=== PATIENT | female | born 1975 | race Caucasian/White ===

== ENCOUNTER 2016-09-20 17:57 | Emergency (ER) | payer MEDICARE, MEDICAID, OTHER ==
[~2016-09-20] VITALS: Ht 157.5 cm; Wt 65.0 kg
[~2016-09-20 17:57] MED LIST: METO50TA PO
[2016-09-20 17:58] VITALS: BP 168/113; PULSE 96; RESP 22; TEMP 98.3
[2016-09-20] MEDS ORDERED: SODIUM CHLORIDE 0.9% FLUSH 5 ML FLUSH IVF PRN (18:15)
[2016-09-20] MEDS ORDERED: ONDANSETRON HCL 4 MG/2 ML VIAL IVP ONE (18:15)
[2016-09-20] MEDS ORDERED: KETOROLAC TROMETHAMINE 30 MG/ML (IVP) VIAL IV PUSH ONE (18:15)
--- NOTE | 2016-09-20 18:20 | PD ---
HPI Chief Complaint: Flank/Kidney Pain Time Seen by Provider: 18:15 Travel History International Travel<30 days: No Contact w/Intl Traveler<30days: No Traveled to known affect area: No History of Present Illness HPI Patient comes in complaining of left flank pain that began approximately 2 hours ago. Patient states it began while she was sitting and getting her nails done. Pain is sharp stabbing like in nature and radiates to her left lower quadrant of her abdomen. Patient denies anything like this in the past. Patient is doing anything for it. Patient denies anything making it better or worse. Patient reports associated nausea. Denies any chest pain, shortness of breath, fevers, change in bowel or bladder, or fevers. Patient states she smokes marijuana for her pain as she does not like taking narcotics. PFSH Past Medical History Diminished Hearing: No Hypertension: Yes Musculoskeletal: Yes Immunizations Current: Yes Tetanus Vaccination: Unknown Influenza Vaccination: No ?: Unknown LMP: not available Menopausal: Yes : 9 Para: 6 Miscarriage: 3 Tubal Ligation: Yes Past Surgical History Cholecystectomy: Yes Tonsillectomy: Yes Social History Alcohol Use: No Tobacco Use: No Substance Use: No Allergies-Medications (Allergen,Severity, Reaction): Coded Allergies: Demerol (Verified Allergy, Intermediate, Hives, 09/15/15) Reported Meds & Prescriptions Reported Meds & Active Scripts Active Flomax (Tamsulosin HCl) 0.4 Mg Cap 0.4 Mg PO HS Zofran Odt (Ondansetron Odt) 4 Mg Tab 4 Mg SL Q6HR PRN Ibuprofen 800 Mg Tab 800 Mg PO Q8H PRN Reported Metoprolol Tartrate 50 mg (Metoprolol Tartrate) 50 Mg Tab 100 Mg PO DAILY Review of Systems Except as stated in HPI: all other systems reviewed are Neg Physical Exam Narrative GENERAL: Well-developed, well nourished, in moderate distress, and non-ill appearing. SKIN: Warm and dry. HEAD: Atraumatic. Normocephalic. EYES: Pupils equal and round. EOMI. No scleral icterus. No injection or drainage. ENT: No nasal bleeding or discharge. Mucous membranes pink and moist. NECK: Trachea midline. Supple. No nuclear rigidity. CARDIOVASCULAR: Regular rate and rhythm. No murmur appreciated. RESPIRATORY: No accessory muscle use. No respiratory distress. Clear to auscultation. Breath sounds equal bilaterally. GASTROINTESTINAL: Abdomen soft, non-tender, nondistended. Hepatic and splenic margins not palpable. Normal bowel sounds 4. No pulsatile mass. Left CVA tenderness and left lower quadrant tenderness. MUSCULOSKELETAL: No obvious deformities. No clubbing. No cyanosis. No edema. Full range of motion. NEUROLOGICAL: Awake and alert. No obvious cranial nerve deficits. Motor grossly within normal limits. Normal speech. PSYCHIATRIC: Appropriate mood and affect; insight and judgment normal. Data Data Last Documented VS Vital Signs Date Time Temp Pulse Resp B/P Pulse Ox O2 Delivery O2 Flow Rate FiO2 09/20/16 19:39 59 18 167/106 96 Room Air 09/20/16 17:58 98.3 Orders Complete Blood Count With Diff (09/20/16 18:12) Comprehensive Metabolic Panel (09/20/16 18:12) Lipase (09/20/16 18:12) Urinalysis - C+S If Indicated (09/20/16 18:12) Ct Abd/Pel W/O Iv Contrast (09/20/16 18:12) Iv Access Insert/Monitor (09/20/16 18:12) Ecg Monitoring (09/20/16 18:12) Oximetry (09/20/16 18:12) Ondansetron Inj (Zofran Inj) (09/20/16 18:15) Sodium Chloride 0.9% Flush (Ns Flush) (09/20/16 18:15) Ketorolac Inj (Toradol Inj) (09/20/16 18:15) Labs Laboratory Tests Test 09/20/16 09/20/16 18:10 19:38 White Blood Count 11.0 TH/MM3 Red Blood Count 4.28 MIL/MM3 Hemoglobin 14.9 GM/DL Hematocrit 43.2 % Mean Corpuscular Volume 100.9 FL Mean Corpuscular Hemoglobin 34.9 PG Mean Corpuscular Hemoglobin 34.6 % Concent Red Cell Distribution Width 12.3 % Platelet Count 204 TH/MM3 Mean Platelet Volume 9.4 FL Neutrophils (%) (Auto) 77.4 % Lymphocytes (%) (Auto) 15.8 % Monocytes (%) (Auto) 5.8 % Eosinophils (%) (Auto) 0.7 % Basophils (%) (Auto) 0.3 % Neutrophils # (Auto) 8.5 TH/MM3 Lymphocytes # (Auto) 1.7 TH/MM3 Monocytes # (Auto) 0.6 TH/MM3 Eosinophils # (Auto) 0.1 TH/MM3 Basophils # (Auto) 0.0 TH/MM3 CBC Comment DIFF FINAL Differential Comment Urine Color YELLOW Urine Turbidity CLEAR Urine pH 6.0 Urine Specific [place] 1.021 Urine Protein TRACE mg/dL Urine Glucose (UA) NEG mg/dL Urine Ketones 10 mg/dL Urine Occult Blood MOD Urine Nitrite NEG Urine Bilirubin NEG Urine Urobilinogen LESS THAN 2.0 MG/DL Urine Leukocyte Esterase TRACE Urine RBC /hpf Urine WBC 8 /hpf Urine Squamous Epithelial 2 /hpf Cells Urine Mucus FEW /lpf Microscopic Urinalysis Comment CULT NOT INDICATED Sodium Level 141 MEQ/L Potassium Level 3.6 MEQ/L Chloride Level 108 MEQ/L Carbon Dioxide Level 23.8 MEQ/L Anion Gap 9 MEQ/L Blood Urea Nitrogen 13 MG/DL Creatinine 0.72 MG/DL Estimat Glomerular Filtration 89 ML/MIN Rate Random Glucose 96 MG/DL Calcium Level 8.9 MG/DL Total Bilirubin 0.4 MG/DL Aspartate Amino Transf 13 U/L (AST/SGOT) Alanine Aminotransferase 20 U/L (ALT/SGPT) Alkaline Phosphatase 72 U/L Total Protein 6.8 GM/DL Albumin 3.8 GM/DL Lipase 127 U/L MDM Medical Decision Making Medical Screen Exam Complete: Yes Emergency Medical Condition: Yes Differential Diagnosis Renal calculi, diverticulitis, pancreatitis, pyelonephritis, other Narrative Course The patient presented with history, exam and evaluation consistent with kidney stone. CT scan showed evidence of stone with mild obstruction. Lab evaluation revealed no serious abnormality. There was no evidence to suggest obstructive infection. The patients pain was well controlled and the patient is tolerating fluids. There was no clinical evidence to support appendicitis, bowel obstruction, cholecystitis/cholelithiasis, pancreatitis, perforation of gastric ulcer, colitis, diverticulitis, bacterial peritonitis, obstruction, volvulus, hernial incarceration or strangulation at this time. There was no evidence to support vascular pathology such as AAA, mesenteric ischemia. There was also no clinical evidence by history, exam or risk factors to suggest atypical presentation of cardiac disease such as ACS, AMI or atypical angina. Diagnosis, plan of care, management and acute outpatient follow up with Urology was discussed with the patient. Warnings to return immediately, such as worsening pain not controlled by pain medications, vomiting, fever or chills or worsening of condition were discussed. The patient agreed with plan. There is no clinical evidence to suggest atypical appendicitis, or vascular pathology (AAA, etc.). There is no clinical evidence to suggest atypical cervicitis, PID or TOA. Patient in no obvious distress upon re-evaluation. Patient states she does not wish to have narcotic pain medication to go home as the NSAIDs we have given her here got of her pain under control. All pertinent laboratory/Radiology result(s) discussed with patient. Patient was asked if they wanted to speak to my attending, which the patient did not wish to do at this time. I discussed patient with Dr. Webster, prior to discharge, who is in agreement with plan of care and disposition. Any questions/concerns in reference to patient diagnosis/ condition discussed and clarified prior to patient's discharge. Reinforced sheer importance of close follow up with patient's primary physician or primary care clinic. Instructed patient to return to ED immediately, if symptoms return/ worsen. Pt showed understanding of above instructions. Further instructions and recommendations were detailed in discharge paperwork. Pt ambulated without difficulty out of ED at discharge. Diagnosis Primary Impression: Kidney stone on left side Referrals: Darrell Sanderson DO Patient Instructions: General Instructions, Kidney Stones (DC) Departure Forms: Work Release Enter return to work date: Sep 22, 2016 Additional Instructions: Follow-up with urologist 1-2 days for reevaluation of the kidney stone you are currently passing and further evaluation of kidney stones noted in the kidneys on CAT scan today. Take all medication as prescribed. Return to the emergency department if symptoms get worse. Med/Other Pt SpecificInfo: Prescription(s) given Scripts Tamsulosin (Flomax)0.4 Mg Cap0.4 Mg PO HS #7 CAP Ref 0 Prov:Jasiel Webster MD 09/20/16 Ondansetron Odt (Zofran Odt)4 Mg Tab4 Mg SL Q6HR PRN (Nausea/Vomiting) #15 TAB Ref 0 Prov:Jasiel Webster MD 09/20/16 Ibuprofen 800 Mg [id number] Mg PO Q8H PRN (PAIN SCALE 1 TO 10) #30 TAB Ref 0 Prov:Jasiel Webster MD 09/20/16 Disposition: DISCHARGE HOME Condition: Stable Howard Alicea Sep 20, 2016 18:20
[2016-09-20 18:28] VITALS: O2SAT 97
--- NOTE | 2016-09-20 18:49 | RADRPT ---
EXAM DATE/TIME: 09/20/2016 18:34 [facility] COMPARISON: No previous studies available for comparison. INDICATIONS : Left flank pain. ORAL CONTRAST: No oral contrast ingested. RADIATION DOSE: 6.22 CTDIvol (mGy) MEDICAL HISTORY : Hypertension. SURGICAL HISTORY : Tubal ligation. Cholecystectomy. ENCOUNTER: Initial ACUITY: 2 days PAIN SCALE: 8/10 LOCATION: Left flank TECHNIQUE: Volumetric scanning of the abdomen and pelvis was performed. Using automated exposure control and ad justment of the mA and/or kV according to patient size, radiation dose was kept as low as reasonably achievable to obtain optimal diagnostic quality images. FINDINGS: LOWER LUNGS: The visualized lower lungs are clear. LIVER: Homogeneous density without lesion. There is no dilation of the biliary tree. No calcified gallston es. SPLEEN: Normal size without lesion. PANCREAS: Within normal limits. KIDNEYS: Normal in size and shape. There is no mass or hydronephrosis on the right. There are 2 punctate nono bstructing right-sided renal calculi measuring 1-2 mm. Multiple nonobstructing left-sided renal calcu li measuring 2-6 mm in size. Mild hydronephrosis left kidney and hydroureter leading to a proximal ur eteral calculus measuring 5 mm.. ADRENAL GLANDS: Within normal limits. VASCULAR: There is no aortic aneurysm. BOWEL/MESENTERY: The stomach, small bowel, and colon demonstrate no acute abnormality. There is no free intraperitone al air or fluid. ABDOMINAL WALL: Within normal limits. RETROPERITONEUM: There is no lymphadenopathy. BLADDER: No wall thickening or mass. REPRODUCTIVE: Within normal limits. INGUINAL: There is no lymphadenopathy or hernia. MUSCULOSKELETAL: Within normal limits for patient age. CONCLUSION: 1. Mild obstructive uropathy on the left secondary to a proximal ureteral calculus measuring 5 mm. 2. Bilateral nonobstructing renal calculi. Daniel Ernandez MD on September 20, 2016 at 18:45 Board Certified Radiologist. This report was verified electronically.
[2016-09-20 18:59] LABS: AUTOMATED NEUTROPHIL # 8.5 TH/MM3 (1.8-7.7); BASOPHIL % 0.3 % (0.0-2.0); EOSINOPHIL # 0.1 TH/MM3 (0-0.4); EOSINOPHIL % 0.7 % (0.0-4.0); HEMATOCRIT 43.2 % (35.0-46.0); HEMO FLAGS DIFF FINAL; LYMPH % 15.8 % (9.0-44.0); LYMPHOCYTE # 1.7 TH/MM3 (1.0-4.8); MEAN CELL VOLUME 100.9 FL (80.0-100.0); MEAN CORPUSCULAR HEMOGLOBIN 34.9 PG (27.0-34.0); MEAN CORPUSCULAR HGB CONC 34.6 % (32.0-36.0); MONO % 5.8 % (0.0-8.0); NEUT % 77.4 % (16.0-70.0); PLATELET COUNT 204 TH/MM3 (150-450); RED BLOOD COUNT 4.28 MIL/MM3 (4.00-5.30); RED CELL DISTRIBUTION WIDTH 12.3 % (11.6-17.2)
[2016-09-20 19:11] LABS: BLOOD, URINE MOD (NEG); COMMENT (UR) CULT NOT INDICATED; CULTURE IF INDICATED CULT NOT INDICATED; GLUCOSE,URINE NEG (NEG); KETONE, URINE 10 mg/dL (NEG); MUCUS URINE FEW /lpf (OCC); NITRITE,URINE NEG (NEG); SQUAMOUS EPITHELIAL CELL URINE 2 /hpf (0-5); URINE COLOR YELLOW (YELLW/STRAW)
[2016-09-20 19:39] VITALS: BP 167/106; PULSE 59; RESP 18; O2SAT 96
[2016-09-20] MEDS ORDERED: TAMS5CAP PO (19:48)
[2016-09-20] MEDS ORDERED: IBUP800T23 PO (19:48)
[2016-09-20] MEDS ORDERED: ZOFR4TAB3 SL (19:48)
[2016-09-20 20:08] LABS: ANION GAP 9 MEQ/L (5-15); AST (GOT) 13 U/L (15-37); BICARBONATE 23.8 MEQ/L (21.0-32.0); BLOOD UREA NITROGEN 13 MG/DL (7-18); CHLORIDE 108 MEQ/L (98-107); GLOMERULAR FILTRATION RATE 89 ML/MIN (>89); POTASSIUM 3.6 MEQ/L (3.5-5.1); SODIUM (NA) 141 MEQ/L (136-145)
[2016-09-20 20:12] LABS: ALKALINE PHOSPHATASE 72 U/L (45-117); ALT (GPT) 20 U/L (10-53); TOTAL BILIRUBIN ADULT 0.4 MG/DL (0.2-1.0)
[2016-09-23] MEDS ORDERED: METO-426 PO (10:45)
[2016-09-23] MEDS ORDERED: PERC5TAB12 PO (12:07)
[2016-09-29] MEDS ORDERED: MULTTAB67 PO (11:03)
[2016-09-30] MEDS ORDERED: PERC5TAB12 PO (13:19)
[2016-10-15] MEDS ORDERED: TRAM50TA PO (15:58)
[2016-10-16] MEDS ORDERED: PERC5TAB12 PO (09:40)
[2016-11-04] MEDS ORDERED: PERC5TAB12 PO (16:03)
[2016-11-11] MEDS ORDERED: PERC5TAB12 PO (10:03)
[2016-11-13] MEDS ORDERED: FLUT1SPR5 EACH NARE (14:22)
[2016-11-16] MEDS ORDERED: PERC5TAB12 PO (10:56)
[2016-11-16] MEDS ORDERED: CEPH-459 PO (10:56)
== END 2016-09-20 20:39 | disposition home or self-care (01) ==
LOC: NEPA 17:57
DX: N20.0 Calculus of kidney (principal)
CPT/HCPCS: 74176; 80053; 81001; 83690; 85025; 96374; 96375; 99284; J1885; J2405

== ENCOUNTER → 2016-09-30 | Day surgery (SDC) | payer MEDICARE, MEDICAID ==
[~2016-09-30] VITALS: Ht 157.5 cm; Wt 64.7 kg
[~2016-09-30] MED LIST changes: +ACETAMINOPHEN 1000 MG/100 ML VIAL IV ONE; +CEPH-459 PO; +FLUT1SPR5 EACH NARE; +INSULIN HUMAN REGULAR 1,000 UNITS/10 ML VIAL SQ PRN; +LACTATED RINGER'S 1000 ML IV SCH; +METO-426 PO; -METO50TA PO; +METOPROLOL TARTRATE 25 MG TAB PO PRN; +MIDAZOLAM HCL 2 MG/2 ML VIAL ONE; +MULTTAB67 PO; +ONDANSETRON HCL 4 MG/2 ML VIAL IV PUSH PRN; +PERC5TAB12 PO; +PROPOFOL 200 MG/20 ML AMP IV ONE; +SODIUM BICARBONATE 8.4% INJ 50 MEQ/50 ML SYR IV ONE; +SODIUM CHLORID 0.9% 500 ML IV SCH; +TRAM50TA PO; +ZOFR4TAB3 SL; +oxyCODONE/ACETAMINOPHEN 5 MG/325 MG TAB PO PRN
[2016-09-30 09:30] VITALS: BP 136/87; PULSE 73; RESP 16; TEMP 98; O2SAT 99
--- NOTE | 2016-09-30 10:06 | RADRPT ---
EXAM DATE/TIME: 09/30/2016 09:05 [facility] COMPARISON: CT ABDOMEN & PELVIS W/O CONTRAST, September 20, 2016, 18:34. INDICATIONS : Evaluate for pneumonia, pneumothorax or communicable disease. Pre op for kidney stone procedure. MEDICAL HISTORY : None. SURGICAL HISTORY : None. ENCOUNTER: Initial ACUITY: 1 day PAIN SCORE: 9/10 LOCATION: Bilateral abdomen FINDINGS: Recent CT showed a 5 mm calculus of the proximal mid left ureter and multiple similar size stones of both kidneys. None of these are clearly seen radiographically. Bowel gas pattern is normal. Cholecyst ectomy clips are again noted. CONCLUSION: Benign-appearing abdomen. No perceptible stones radiographically. Please see above. Shekhar Donald MD on September 30, 2016 at 10:04 Board Certified Radiologist. This report was verified electronically.
--- NOTE | 2016-09-30 13:18 | PD.OP ---
Operative Report Date of Surgery: Sep 30, 2016 Preoperative Diagnosis: (1) Kidney stone on left side (2) Ureteral calculus, left Postoperative Diagnosis: (1) Kidney stone on left side Procedure: Extracorporeal shockwave lithotripsy of left mid renal calculus. Anesthesia: Mask/IV sedation Surgeon: Adin Dao Deep Fat Cook Fry(s): None Operation and Findings: Indication for procedure: Case of a pleasant 41-year-old female who presents today to undergo shockwave lithotripsy of a left renal and left proximal ureteral calculus. Operative procedure in detail: Patient was brought to the operating room suite and placed supine on the lithotripsy table. She was then placed under IV sedation. After appropriate timeout was undertaken I initially attempted to localize the patient's previously seen left proximal ureteral stone measuring 5 mm. The stone cannot be localized with fluoroscopy and either it did not visualize well or it has passed. The 6 mm left renal stone was visualized with fluoroscopy and socially treated with shockwave lithotripsy. The Bernard Piezolith 3000 device was utilized to accomplish this. The patient received a total of 2500 shocks with a maximum power level setting of 20. The stone was social welfare research worker in intensity at the conclusion of the procedure consistent with at least some fragmentation. Patient was subsequently transferred to same day surgery in satisfactory condition having tolerated the procedure well. Adin Dao MD Sep 30, 2016 13:18
[2016-09-30 14:15] VITALS: BP 117/75; PULSE 61; RESP 20; TEMP 97.5; O2SAT 98
--- NOTE | 2016-09-30 18:24 | EKG ---
Date Performed: 09/30/2016 Time Performed: 10:01:37 PTAGE: 41 years EKG: SINUS BRADYCARDIA BORDERLINE ECG PREVIOUS TRACING : 10/08/2014 21.45 DOCTOR: Sanjeev Solares Interpretating Date/Time 09/30/2016 18:23:19
== END | disposition home or self-care (01) ==
LOC: HSDC 08:38
PROVIDERS: ATTEND Urology
DX: N20.0 Calculus of kidney (principal); N20.1 Calculus of ureter; I10 Essential (primary) hypertension; R10.2 Pelvic and perineal pain
CPT/HCPCS: 00873; 50590; 74000; 93005; J0131; J2250; J3010; J7120

== ENCOUNTER → 2016-11-16 | Day surgery (SDC) | payer MEDICARE, MEDICAID ==
[~2016-11-16] VITALS: Ht 156.8 cm; Wt 63.5 kg
[~2016-11-16] MED LIST changes: +*MEPERIDINE 25 MG INJ VIAL PERIprocedural Use ONLY ONE; +*morphine SULFATE 8 MG/ML PERIprocedure ONLY ONE; -ACETAMINOPHEN 1000 MG/100 ML VIAL IV ONE; +CHLORHEXIDINE GLUCONATE 2 % 1 PACK (2 CLOTHS) TOPICAL PRN; +DEXAMETHASONE SOD PHOS 4 MG/ML VIAL ONE; +DO NOT ADM ANY ANTICOAGULANT DRUGS PRN; +IOHEXOL 300 MG/ML 50 ML BTL (for RAD DIAG) ONE; +LACTATED RINGER'S 1000 ML IV PRN; -LACTATED RINGER'S 1000 ML IV SCH; +ONDANSETRON HCL 4 MG/2 ML VIAL IV PUSH ONE; +POVIDONE IODINE 5% (ANTISEPSIS KIT) 4 APPLICATIONS EACH NARE PRN; -SODIUM BICARBONATE 8.4% INJ 50 MEQ/50 ML SYR IV ONE; +SODIUM CHLORID 0.9% 500 ML IV PRN; -SODIUM CHLORID 0.9% 500 ML IV SCH; +ceFAZolin 1,000 MG/NS 100 ML IV SCH; +ePHEDrine/NS 25 MG/5 ML SYR IV ONE; +fentaNYL CITRATE 250 MCG/5 ML AMP ONE
[2016-11-16 08:20] VITALS: BP 133/90; PULSE 63; RESP 20; TEMP 98.1; O2SAT 98
[2016-11-16 08:30] LABS: BASOPHIL % 0.4 % (0.0-2.0); EOSINOPHIL # 0.1 TH/MM3 (0-0.4); EOSINOPHIL % 2.5 % (0.0-4.0); HEMATOCRIT 38.7 % (35.0-46.0); HEMO FLAGS DIFF FINAL; LYMPH % 22.9 % (9.0-44.0); LYMPHOCYTE # 1.4 TH/MM3 (1.0-4.8); MEAN CELL VOLUME 99.8 FL (80.0-100.0); MEAN CORPUSCULAR HGB CONC 34.1 % (32.0-36.0); MONO % 7.6 % (0.0-8.0); NEUT % 66.6 % (16.0-70.0); PLATELET COUNT 188 TH/MM3 (150-450); RED BLOOD COUNT 3.88 MIL/MM3 (4.00-5.30); WHITE BLOOD COUNT 5.9 TH/MM3 (4.0-11.0)
--- NOTE | 2016-11-16 10:51 | PD.OP ---
Operative Report Date of Surgery: Nov 16, 2016 Preoperative Diagnosis: (1) Ureteral calculus, left Postoperative Diagnosis: (1) Ureteral calculus, left Procedure: Cystoscopy, left retrograde pyelogram, left ureteroscopy and insertion of left ureteral catheter Anesthesia: General Surgeon: Adin Dao Administrative Aide(s): None Operation and Findings: Indication for procedure: Case of a pleasant 41-year-old female who is status post shockwave lithotripsy of a left renal calculus on September 30 of this year. Postop imaging included CT scan that demonstrated a couple of stone fragments involving the proximal left ureter. Patient continues to experience left flank pain and presents now for ureteroscopic stone extraction of the stone fragments involving the left ureter. Operative procedure in detail: Patient was brought to the operating room suite and placed supine on the cystoscopy table. She was then placed under general anesthesia. She was then repositioned in the dorsolithotomy position and prepped and draped in normal sterile fashion. After appropriate timeout was undertaken proceeded with cystoscopic evaluation utilizing the rigid cystoscope with 30 lens and 20 Italian sheath. Both right and left ureteral orifice easily correct anatomic position effluxing clear yellow urine. There were no bladder mucosal lesions noted. There were a few satellite particles noted floating within the urinary bladder. I then proceeded with passing a sensor 0.035 wire partially up the left ureter. A 6 Italian open-ended catheter was then advanced over the wire and advanced several centimeters from the ureteral orifice and the wire withdrawn. The left retrograde polygraph study was performed that demonstrated prompt filling and drainage of the left collecting system. The entire left ureter was dilated all the way down to the ureteral orifice. Next the guidewire was introduced and advanced all the way up the left kidney and the open-ended catheter removed. The cystoscope was withdrawn and the guidewire secured to sterile drape with hemostat. The self dilating ureteroscope was then utilized a complete ureteroscopy was performed. The scope was advanced all the way up to the left renal pelvis and no stones were seen. There was some sand-like particles along the course of the ureter consistent with recent stone passage. The ureteroscope was withdrawn and the cystoscope was reintroduced and the previously placed wire was backloaded through the cystoscope. A 6 Italian open-ended catheters was advanced up the left ureter to the left renal pelvis under fluoroscopic guidance. The cystoscope was withdrawn and a 16 Italian 10 cc Granda catheter was placed. The open-ended ureteral catheter was anchored to the Granda via a connector. The patient tolerated the procedures without Occasions and transferred to the PACU in satisfactory condition. Adin Dao MD Nov 16, 2016 10:51
[2016-11-16 12:35] VITALS: BP 158/92; PULSE 62; RESP 18; TEMP 98.2; O2SAT 100
== END | disposition home or self-care (01) ==
LOC: HSDC 07:42
PROVIDERS: ATTEND Urology
DX: N20.1 Calculus of ureter (principal); I10 Essential (primary) hypertension
CPT/HCPCS: 00910; 52332; 74420; 85025; C1769; J0690; J1100; J2175; J2250; J2270; J2405; J3010; J7120; Q9967

== ENCOUNTER 2017-02-24 10:53 | Emergency (ER) | payer MEDICARE, MEDICAID ==
[~2017-02-24] VITALS: Ht 157.5 cm; Wt 65.0 kg
[~2017-02-24 10:53] MED LIST changes: -*MEPERIDINE 25 MG INJ VIAL PERIprocedural Use ONLY ONE; -*morphine SULFATE 8 MG/ML PERIprocedure ONLY ONE; -CHLORHEXIDINE GLUCONATE 2 % 1 PACK (2 CLOTHS) TOPICAL PRN; -DEXAMETHASONE SOD PHOS 4 MG/ML VIAL ONE; -DO NOT ADM ANY ANTICOAGULANT DRUGS PRN; -INSULIN HUMAN REGULAR 1,000 UNITS/10 ML VIAL SQ PRN; -IOHEXOL 300 MG/ML 50 ML BTL (for RAD DIAG) ONE; -LACTATED RINGER'S 1000 ML IV PRN; -METOPROLOL TARTRATE 25 MG TAB PO PRN; -MIDAZOLAM HCL 2 MG/2 ML VIAL ONE; -ONDANSETRON HCL 4 MG/2 ML VIAL IV PUSH ONE; -ONDANSETRON HCL 4 MG/2 ML VIAL IV PUSH PRN; -POVIDONE IODINE 5% (ANTISEPSIS KIT) 4 APPLICATIONS EACH NARE PRN; -PROPOFOL 200 MG/20 ML AMP IV ONE; -SODIUM CHLORID 0.9% 500 ML IV PRN; -TRAM50TA PO; -ZOFR4TAB3 SL; -ceFAZolin 1,000 MG/NS 100 ML IV SCH; -ePHEDrine/NS 25 MG/5 ML SYR IV ONE; -fentaNYL CITRATE 250 MCG/5 ML AMP ONE; -oxyCODONE/ACETAMINOPHEN 5 MG/325 MG TAB PO PRN
[2017-02-24 11:00] VITALS: BP 163/106; PULSE 100; RESP 19; TEMP 98.1; O2SAT 100
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
[2017-02-24] MEDS ORDERED: SODIUM CHLORIDE 0.9% FLUSH 10 ML FLUSH IVF PRN (11:30)
[2017-02-24] MEDS: ONDANSETRON HCL 4 MG/2 ML VIAL IVP ONE ×2 (11:30→12:58)
[2017-02-24 11:31] VITALS: O2SAT 99
[2017-02-24 11:55] LABS: AUTOMATED NEUTROPHIL # 7.8 TH/MM3 (1.8-7.7); BASOPHIL # 0.1 TH/MM3 (0-0.2); BASOPHIL % 0.5 % (0.0-2.0); EOSINOPHIL # 0.1 TH/MM3 (0-0.4); EOSINOPHIL % 0.7 % (0.0-4.0); HEMATOCRIT 43.6 % (35.0-46.0); HEMO FLAGS DIFF FINAL; LYMPH % 16.7 % (9.0-44.0); LYMPHOCYTE # 1.7 TH/MM3 (1.0-4.8); MEAN CORPUSCULAR HEMOGLOBIN 34.3 PG (27.0-34.0); MONO % 4.9 % (0.0-8.0); NEUT % 77.2 % (16.0-70.0); PLATELET COUNT 236 TH/MM3 (150-450); RED BLOOD COUNT 4.31 MIL/MM3 (4.00-5.30); RED CELL DISTRIBUTION WIDTH 12.6 % (11.6-17.2); WHITE BLOOD COUNT 10.1 TH/MM3 (4.0-11.0)
[2017-02-24 12:02] LABS: APTT (PATIENT) 26.1 SEC (24.3-30.1)
[2017-02-24 12:10] LABS: ANION GAP 10 MEQ/L (5-15); AST (GOT) 31 U/L (15-37); BICARBONATE 23.9 MEQ/L (21.0-32.0); BLOOD UREA NITROGEN 9 MG/DL (7-18); CHLORIDE 106 MEQ/L (98-107); GLOMERULAR FILTRATION RATE 91 ML/MIN (>89); POTASSIUM 3.4 MEQ/L (3.5-5.1); SODIUM (NA) 140 MEQ/L (136-145)
[2017-02-24 12:12] LABS: ALT (GPT) 28 U/L (10-53)
--- NOTE | 2017-02-24 12:13 | RADRPT ---
EXAM DATE/TIME: 02/24/2017 11:52 [facility] COMPARISON: No previous studies available for comparison. INDICATIONS : Midsternal chest pain with nausea and shortness of breath [place] the [place] possible CVA RADIATION DOSE: 28.89 CTDIvol (mGy) MEDICAL HISTORY : Renal calculi. SURGICAL HISTORY : Craniotomy. Cholecystectomy.Tubal ligation. ENCOUNTER: Initial ACUITY: 1 day PAIN SCALE: 2/10 LOCATION: cranial TECHNIQUE: Multiple contiguous axial images were obtained of the head. Using automated exposure control and adj ustment of the mA and/or kV according to patient size, radiation dose was kept as low as reasonably a chievable to obtain optimal diagnostic quality images. DICOM format image data is available electro nically for review and comparison. FINDINGS: CEREBRUM: The ventricles are normal for age. No evidence of midline shift, mass lesion, hemorrhage or acute in farction. No extra-axial fluid collections are seen. POSTERIOR FOSSA: The cerebellum and brainstem are intact. The 4th ventricle is midline. The cerebellopontine angle i s unremarkable. EXTRACRANIAL: The visualized portion of the orbits is intact. SKULL: The calvaria is intact. No evidence of skull fracture. CONCLUSION: No acute disease. Aldo Rai MD FACR on February 24, 2017 at 12:10 Board Certified Radiologist. This report was verified electronically.
[2017-02-24 12:16] LABS: ALKALINE PHOSPHATASE 74 U/L (45-117); CREATINE KINASE 285 U/L (26-192); TOTAL BILIRUBIN ADULT 0.5 MG/DL (0.2-1.0)
[2017-02-24 12:18] LABS: BLOOD, URINE NEG (NEG); GLUCOSE,URINE NEG (NEG); KETONE, URINE NEG (NEG); MUCUS URINE FEW /lpf (OCC); NITRITE,URINE NEG (NEG); SQUAMOUS EPITHELIAL CELL URINE 1 /hpf (0-5); URINE COLOR YELLOW (YELLW/STRAW)
[2017-02-24 12:21] LABS: COMMENT (UR) CATH-CULT NOT IND; CULTURE IF INDICATED CATH CULTURE NOT IND
[2017-02-24 12:28] LABS: CKMB 2.3 NG/ML (0.5-3.6)
--- NOTE | 2017-02-24 12:28 | RADRPT ---
EXAM DATE/TIME: 02/24/2017 11:29 [facility] COMPARISON: No previous studies available for comparison. INDICATIONS : Patient is having chest pain and has been short of breath since this morning after her workout. MEDICAL HISTORY : Hypertension. SURGICAL HISTORY : Tubal ligation. Cholecystectomy ENCOUNTER: Initial ACUITY: 1 day PAIN SCORE: 5/10 LOCATION: Bilateral chest FINDINGS: A single view of the chest demonstrates the lungs to be symmetrically aerated without evidence of mas s, infiltrate or effusion. The cardiomediastinal contours are unremarkable. Osseous structures are intact. CONCLUSION: No acute disease. Aldo Rai MD FACR on February 24, 2017 at 12:26 Board Certified Radiologist. This report was verified electronically.
[2017-02-24 12:35] LABS: AMPHETAMINE, URINE NEG (NEG); BARBITURATES, URINE NEG (NEG); COCAINE, URINE NEG (NEG)
[2017-02-24] MEDS ORDERED: POTASSIUM CHLORIDE 10 MEQ CONTROLLED RELEASE TAB PO ONE (13:00)
--- NOTE | 2017-02-25 14:52 | EKG ---
Date Performed: 02/24/2017 Time Performed: 11:06:08 PTAGE: 41 years EKG: Sinus rhythm WITH SHORT CO INTERVAL BORDERLINE ECG PREVIOUS TRACING : 09/30/2016 10.01 Since previous tracing, no significant change noted DOCTOR: Josee Carson Interpretating Date/Time 02/25/2017 14:51:29
== END 2017-02-24 13:32 | disposition home or self-care (01) ==
LOC: NEPE 10:53
DX: F12.10 Cannabis abuse, uncomplicated (principal); R20.2 Paresthesia of skin; I10 Essential (primary) hypertension
CPT/HCPCS: 70450; 71010; 80053; 80307; 81001; 82550; 82552; 84484; 85025; 85730; 93005; 96374; 99285; J2405

== ENCOUNTER 2017-06-27 14:06 | Emergency (ER) | payer OTHER, MEDICARE, MEDICAID ==
[~2017-06-27] VITALS: Ht 154.9 cm; Wt 68.0 kg
[~2017-06-27 14:06] MED LIST changes: -CEPH-459 PO; -FLUT1SPR5 EACH NARE; -MULTTAB67 PO; -PERC5TAB12 PO
[2017-06-27 14:12] VITALS: BP 155/102; PULSE 83; RESP 16; TEMP 98.1; O2SAT 96
[2017-06-27] MEDS ORDERED: METO1TAB9 PO (14:26)
[2017-06-27] MEDS ORDERED: NAPR250T4 PO (14:26)
[2017-06-27] MEDS ORDERED: SODIUM CHLOR 0.9% 1000 ML INJ 1,000 ML IV SCH (14:31)
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
[2017-06-27] MEDS ORDERED: SODIUM CHLORIDE 0.9% FLUSH 10 ML FLUSH IV FLUSH PRN (14:45)
[2017-06-27] MEDS ORDERED: KETOROLAC TROMETHAMINE 30 MG/ML (IVP) VIAL IVP ONE (14:45)
[2017-06-27 14:52] LABS: AUTOMATED NEUTROPHIL # 5.5 TH/MM3 (1.8-7.7); BASOPHIL # 0.3 TH/MM3 (0-0.2); BASOPHIL % 3.5 % (0.0-2.0); EOSINOPHIL # 0.1 TH/MM3 (0-0.4); EOSINOPHIL % 1.6 % (0.0-4.0); HEMO FLAGS DIFF FINAL; LYMPH % 19.3 % (9.0-44.0); LYMPHOCYTE # 1.6 TH/MM3 (1.0-4.8); MEAN CELL VOLUME 101.2 FL (80.0-100.0); MEAN CORPUSCULAR HEMOGLOBIN 33.5 PG (27.0-34.0); MEAN CORPUSCULAR HGB CONC 33.2 % (32.0-36.0); MONO % 8.3 % (0.0-8.0); NEUT % 67.3 % (16.0-70.0); PLATELET COUNT 234 TH/MM3 (150-450); RED BLOOD COUNT 4.44 MIL/MM3 (4.00-5.30); RED CELL DISTRIBUTION WIDTH 11.7 % (11.6-17.2); WHITE BLOOD COUNT 8.2 TH/MM3 (4.0-11.0)
[2017-06-27 15:03] LABS: BICARBONATE 27.9 MEQ/L (21.0-32.0); POTASSIUM 4.6 MEQ/L (3.5-5.1)
[2017-06-27] MEDS ORDERED: IOHEXOL 350 MG/ML 10 ML VIAL (for RAD DIAG) IVCONTRAST ONE (15:44)
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
[2017-06-27] MEDS ORDERED: ROBA500T PO (16:18)
[2017-06-27] MEDS ORDERED: IBUP-232 PO (16:18)
== END 2017-06-27 17:13 | disposition home or self-care (01) ==
LOC: PHEFT 14:06
DX: R10.30 Lower abdominal pain, unspecified (principal); S16.1XXA Strain of muscle, fascia and tendon at neck level, initial encounter; M79.1 Myalgia; I10 Essential (primary) hypertension; V49.9XXA Car occupant (driver) (passenger) injured in unspecified traffic accident, initial encounter; Z87.442 Personal history of urinary calculi
CPT/HCPCS: 74177; 80048; 84703; 85025; 96374; 99285; J1885; J7030; Q9967

== ENCOUNTER 2017-10-24 13:07 | Emergency (ER) | payer MEDICARE, MEDICAID ==
[~2017-10-24] VITALS: Ht 157.5 cm; Wt 65.0 kg
[~2017-10-24 13:07] MED LIST changes: +IBUP-232 PO; -METO-426 PO; +METO1TAB9 PO; +NAPR250T4 PO; +ROBA500T PO
[2017-10-24 13:17] VITALS: BP 126/72; PULSE 72; RESP 17; TEMP 98.2; O2SAT 96
--- NOTE | 2017-10-24 14:37 | RADRPT ---
EXAM DATE/TIME: 10/24/2017 13:57 [facility] COMPARISON: No previous studies available for comparison. INDICATIONS : Left wrist pain MEDICAL HISTORY : None. SURGICAL HISTORY : Right forearm surgery ENCOUNTER: Initial ACUITY: 2 days PAIN SCORE: 10/10 LOCATION: Left upper extremity FINDINGS: Three view examination of the left wrist demonstrates no soft tissue swelling, dislocation, or fractu re. The carpal bones are in normal alignment. The joint spaces are maintained. Bony mineralization is normal. An extra medullary plate is noted along the shaft of the mid radius from previous ORIF. CONCLUSION: No acute disease. Pasha Nj MD on October 24, 2017 at 14:35 Board Certified Radiologist. This report was verified electronically.
== END 2017-10-24 14:27 | disposition left against medical advice (07) ==
LOC: NED 13:07
DX: S59.912A Unspecified injury of left forearm, initial encounter (principal); W23.0XXA Caught, crushed, jammed, or pinched between moving objects, initial encounter; Z53.21 Procedure and treatment not carried out due to patient leaving prior to being seen by health care provider
CPT/HCPCS: 73110; 99281